=== PATIENT | male | born 1995 | race Caucasian/White ===

== ENCOUNTER 2017-01-09 13:58 | Emergency (ER) | payer SELFPAY ==
[~2017-01-09 13:58] MED LIST: ADRENALIN ONE; CORDARONE IV ONE; XYLOCAINE CARDIAC IV ONE
[2017-01-09] MEDS ORDERED: NACL 0.9% 1000 ML 2,000 ML ONE (14:00)
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
== END 2017-01-09 16:00 ==
LOC: EDBD → ED 13:58
DX: I46.8 Cardiac arrest due to other underlying condition (principal); W34.00XA Accidental discharge from unspecified firearms or gun, initial encounter; Y93.89 Activity, other specified; Y99.8 Other external cause status; Y92.89 Other specified places as the place of occurrence of the external cause
CPT/HCPCS: 36430; 86850; 86900; 86901; 86920; 99285; J0171; J0282; J2001; J7030; P9016